=== PATIENT | male | born 1980 | race Caucasian/White ===

== ENCOUNTER 2021-04-21 21:24 | Emergency (ER) | payer OTHER, SELFPAY ==
[2021-04-21 21:43] VITALS: BP 135/98; PULSE 84; RESP 18; TEMP 36.6; O2SAT 99
--- NOTE | 2021-04-21 21:44 | ED.EXTPRO ---
HPI - Extremity Problem General Chief complaint: Extremity Problem,Nontraumatic Stated complaint: poss infection right hand Time Seen by Provider: 04/21/21 21:44 Source: patient Mode of arrival: ambulatory Limitations: no limitations History of Present Illness HPI Narrative: Patient is a 40-year-old male who presents for evaluation of right hand redness. Patient states that he cut his hand while working on his gutters 5 days ago. He states that a small scab formed over his third knuckle on his right hand. Patient is right-hand dominant. He reports that he remove the scab yesterday and woke up to some redness overlying the area with streaking up into his right arm. He denies any significant swelling. He does report some mild pain. She denies fever, chills, nausea, vomiting. No myalgias. Patient is not up-to-date on his tetanus. He denies any weakness or numbness. No difficulty with movement. No purulent discharge from the wound. Related Data Allergies Allergy/AdvReac Type Severity Reaction Status Date / Time No Known Allergies Allergy Verified 04/21/21 21:47 Review of Systems Review of Systems: Narrative: CONSTITUTIONAL: Denies fever, chills, or sweats. EYES: Denies visual changes, redness, or discharge. ENT: Denies rhinorrhea, congestion, sore throat, or otalgia. CARDIOVASCULAR: Denies chest pain, palpitations, or edema. RESPIRATORY: Denies cough or dyspnea. GASTROINTESTINAL: Denies abdominal pain, nausea, vomiting, or diarrhea. GENITOURINARY: Denies dysuria or hematuria. SKIN: Denies rash or itching. MUSCULOSKELETAL: Denies back pain, joint pain, or myalgia. NEUROLOGIC: Denies headache, numbness, or weakness. [facility] Social History Social History (Updated 04/21/21 @ 22:13 by Cecily Guerrero MD) Smoking status: Never smoker Alcohol intake: never Substance use: never Gender identity (if verbalized by the patient): Male Exam Narrative: Exam Narrative: GENERAL: Awake, alert, conversant HEAD: Normocephalic, atraumatic. EYES: PERRLA and EOMI. ENT: Nares clear, no rhinorrhea or epistaxis. Mucous membranes moist. NECK: Supple. CHEST: No respiratory distress, breathing even and non labored HEART: Regular rate, sinus rhythm ABDOMEN:Non distended, non tender EXTREMITIES: Normal range of motion. Pt with abrasion overlying 3rd metacarpal. Full ROM without limitation. Mild erythema that is streaking into the forearm. No purulent discharge. No ecchymoses. No foreign body or deformity. Capillary refill less than 3 seconds. SKIN: Warm, dry, no rash. NEURO:No focal deficits. Alert and oriented x3 Course Vital Signs Vital signs: Vital Signs Temperature 36.6 C 04/21/21 21:43 Pulse Rate 84 04/21/21 21:43 Respiratory Rate 18 04/21/21 21:43 Blood Pressure 135/98 H 04/21/21 21:43 Pulse Oximetry 99 04/21/21 21:43 Temperature 36.6 C 04/21/21 21:43 Pulse Rate 84 04/21/21 21:43 Respiratory Rate 18 04/21/21 21:43 Blood Pressure 135/98 H 04/21/21 21:43 Pulse Oximetry 99 04/21/21 21:43 MDM - Extremity (Nontraumatic) MDM Narrative Medical decision making narrative: Patient presenting for evaluation of right hand abrasion, redness. At the time of assessment, ABCs are intact and vital signs are stable. No fever. No tachycardia. No hypotension. No signs of septic arthritis given normal range of motion. No sign of bruce injury. Patient does have some linear streaking which is consistent with cellulitis. Patient's tetanus was updated. He was given first dose of Bactrim and Keflex here in the emergency department. Given the abrasion and exposure, wanted to ensure patient had good staphylococcal coverage. Patient has no other concerning features to warrant lab work at this time. Patient was discharged home with antibiotics in stable condition. He was given close return precautions. Discharge Plan Discharge Clinical Impression: Cellulitis Qualifiers: Site of cellulitis: extremity Sit
[2021-04-21] MEDS: CEPHALEXIN 500 MG CAPSULE PO (22:11)
== END 2021-04-21 22:32 | disposition home or self-care (01) ==
PROVIDERS: Emergency Provider Emergency Medicine
DX: L03.113 Cellulitis of right upper limb (principal)
CPT/HCPCS: 99283; A9270

== ENCOUNTER 2021-06-28 14:30 | Emergency (ER) | payer OTHER, SELFPAY ==
[2021-06-28 14:41] VITALS: BP 131/94; PULSE 81; RESP 16; TEMP 36.1; O2SAT 100
--- NOTE | 2021-06-28 15:02 | PC.NURSE ---
1455 eye exam set up done.
--- NOTE | 2021-06-28 15:14 | ED.EYEPROB ---
HPI - Eye Problem General Chief complaint: Eye Problems Stated complaint: Eye Pain History of Present Illness HPI Narrative: This is a 40 year old male that come in complaining of right eye pain he feels like something and he is not going well with trying to get things out of his eye. Patient states that he was at work and he felt like he got some dust in his eyes he did try to attempt to flush his eye out with no relief. Related Data Home Medications Medication Instructions Recorded Confirmed Reflux Med. 06/28/21 hydrochlorothiazide 06/28/21 meloxicam 06/28/21 varenicline [Chantix] mg 06/28/21 Allergies Allergy/AdvReac Type Severity Reaction Status Date / Time No Known Allergies Allergy Verified 04/21/21 21:47 Review of Systems Review of Systems: CONSTITUTIONAL: Denies fever, chills, or sweats. EYES: Denies visual changes, reports redness, or discharge. ENT: Denies rhinorrhea, congestion, sore throat, or otalgia. CARDIOVASCULAR:Denies chest pain, palpitations, or edema. RESPIRATORY: Denies cough or dyspnea. GASTROINTESTINAL: Denies abdominal pain, nausea, vomiting, or diarrhea. GENITOURINARY: Denies dysuria or hematuria. SKIN:[Denies rash or itching. MUSCULOSKELETAL:Denies back pain, joint pain, or myalgia. NEUROLOGIC: Denies headache, numbness, or weakness. PSYCHIATRIC:Denies anxiety or depression PMFSH Social History Social History (Updated 04/21/21 @ 22:13 by Cecily Guerrero MD) Smoking status: Never smoker Alcohol intake: never Substance use: never Gender identity (if verbalized by the patient): Male Comments At time as signature, I have reviewed and agree with nursing past medical, social, surgical and family history. Please see nursing chart for further information. There is no relevant family history pertinent to the presenting complaint. Exam Narrative: GENERAL:Well-appearing, well-nourished, and in no acute distress. HEAD:Normocephalic, atraumatic. EYES: PERRLA right eye erythema with mild drainage small white pinpoint foreign object ENT: Nares clear, no rhinorrhea or epistaxis. Mucous membranes moist. NECK: Supple. CHEST: Clear to auscultation. No respiratory distress. HEART: Regular rate and rhythm. No murmur heard. Normal peripheral pulses. ABDOMEN: Soft, nontender, nondistended, normal active bowel sounds. EXTREMITIES: Normal range of motion. No edema. SKIN: Warm, dry, no rash. NEURO: No focal deficits. Alert and oriented x3. Course Vital Signs Vital signs: Vital Signs Temperature 96.9 F L 06/28/21 14:41 Pulse Rate 81 06/28/21 14:41 Respiratory Rate 16 06/28/21 14:41 Blood Pressure 131/94 H 06/28/21 14:41 Pulse Oximetry 100 06/28/21 14:41 Temperature 96.9 F L 06/28/21 14:41 Pulse Rate 81 06/28/21 14:41 Respiratory Rate 16 06/28/21 14:41 Blood Pressure 131/94 H 06/28/21 14:41 Pulse Oximetry 100 06/28/21 14:41 Procedures FB Removal Eye Foreign Body #1: Foreign Body Removal Date: 06/28/21 Foreign Body Removal Time: 13:24 Time Out performed: Yes Location: eye (R) Topical anesthetic used: tetracaine Evidence of corneal penetration: Yes Technique: irrigation and NS (250ml) Post-procedure medication: ophthalmic antibiotic Patient tolerated procedure: well Complications: incomplete foreign body removal Foreign Body Removal Narrative: white pinpoint object removed without difficulties patient tolerated MDM - Eye Problem Differential Diagnosis Differential diagnosis: Likely corneal abrasion, conjunctivitis, acute iritis and corneal ulcer Discharge Plan Discharge Clinical Impression: Corneal abrasion Patient Disposition: Home, Self-Care Condition: Stable Instructions: Antibiotic Form, Corneal Abrasion (ED), Hypertension (ED) Additional Instructions: Your blood pressure was elevated in the clinic today, I feel that this is due to your acute illness
== END 2021-06-28 15:53 | disposition home or self-care (01) ==
PROVIDERS: Emergency Provider Nurse Practitioner Family
DX: S05.01XA Injury of conjunctiva and corneal abrasion without foreign body, right eye, initial encounter (principal); X58.XXXA Exposure to other specified factors, initial encounter; Y99.0 Civilian activity done for income or pay; I10 Essential (primary) hypertension; K21.9 Gastro-esophageal reflux disease without esophagitis
CPT/HCPCS: 99213; A9270; G0463